=== PATIENT | male | born 1985 | race African-American/Black ===

== ENCOUNTER 2017-10-12 10:48 | Emergency (ER) | payer OTHER ==
[~2017-10-12] VITALS: Ht 182.9 cm; Wt 70.3 kg
[~2017-10-12 10:48] MED LIST: MEDROL4 M2 PO; PROAIR HFA8.5 GM INH
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
[2017-10-12] MEDS ORDERED: MOBIC15 M1 PO (12:36)
[2017-10-12 12:39] VITALS: BP 104/56
== END 2017-10-12 12:41 ==
LOC: ERH 10:48
DX: M79.604 Pain in right leg (principal); M79.605 Pain in left leg; R25.2 Cramp and spasm
CPT/HCPCS: 96372